=== PATIENT | male | born 1975 | race Two or more races ===

== ENCOUNTER 2023-04-01 20:24 | Emergency (ER) | payer MEDICAID, OTHER ==
[~2023-04-01] VITALS: Ht 165.1 cm; Wt 86.3 kg
[2023-04-01 20:47] LABS: Basophils # (auto) 0.1 10 ^3/uL (0-0.2); Basophils % (auto) 1.1 % (0.0-2.0); Eosinophils # (auto) 0.2 10 ^3/uL (0-0.8); Eosinophils % (auto) 2.1 % (0.0-7.0); Hematocrit 46.2 % (41.0-53.0); Hemoglobin 16.2 g/dL (13.5-17.5); Lymphocytes # (auto) 2.9 10 ^3/uL (0.4-5.4); Lymphocytes % (auto) 29.5 % (10.0-50.0); Mean Corpuscular Hemoglobin 29.5 pg (28.0-32.0); Mean Corpuscular Volume 84.4 fL (80.0-100.0); Monocytes # (auto) 0.7 10 ^3/uL (0-1.3); Monocytes % (auto) 7.2 % (0.0-12.0); Neutrophils # (auto) 5.9 10 ^3/uL (1.6-8.6); Neutrophils % (auto) 60.1 % (37.0-80.0); Nucleated Red Blood Cells % 0.3 %; Red Blood Cells 5.47 10^6/uL (4.5-5.90); Red Cell Distribution Width 13.2 % (11.8-14.3); White Blood Cell 9.9 10^3/uL (4.4-10.8)
[2023-04-01 21:02] LABS: Albumin 3.7 g/dL (3.4-5.0); BUN/Creatinine Ratio 12.2 (10.0-20.0); Calcium 8.6 mg/dL (8.5-10.1); Potassium 3.6 mmol/L (3.5-5.1)
[2023-04-01 21:05] LABS: Bilirubin, Total 0.4 mg/dL (0.2-1.0); Total Protein 7.5 g/dL (6.4-8.2)
[2023-04-02 03:50] VITALS: BP 104/73
== END 2023-04-02 04:00 | disposition home or self-care (01) ==
LOC: ER 20:24
DX: R07.89 Other chest pain (principal); R51.9 Headache, unspecified
CPT/HCPCS: 36415; 70450; 71045; 80053; 84484; 85025; 93005

== ENCOUNTER 2024-05-01 12:00 | Emergency (ER) | payer MEDICAID ==
[~2024-05-01] VITALS: Ht 165.1 cm; Wt 80.3 kg
[2024-05-01 12:18] VITALS: BP 117/76; PULSE 78; RESP 14; O2SAT 99
[2024-05-01 12:44] LABS: Urine Bacteria None Seen /hpf (None Seen)
[2024-05-01] MEDS ORDERED: HYDROcodone-ACET 10/325MG TAB PO ONE (12:45)
[2024-05-01 12:55] LABS: Urine Blood Negative /uL (Negative); Urine Clarity Clear (Clear); Urine Color Light-Yellow (Yellow); Urine Protein, UAD Negative (Negative); Urine Specific Gravity 1.019 (1.001-1.035); Urine Urobilinogen Normal (Negative); Urine WBC 1 /hpf (0 - 3)
== END 2024-05-01 14:04 | disposition left against medical advice (07) ==
LOC: ER 12:00
DX: R51.9 Headache, unspecified (principal); R10.9 Unspecified abdominal pain; R53.1 Weakness; E78.5 Hyperlipidemia, unspecified
CPT/HCPCS: 81001